=== PATIENT | female | born 1960 | race Caucasian/White ===

== ENCOUNTER 2016-09-03 14:18 | Day surgery (SDC) | payer OTHER ==
[~2016-09-03] VITALS: Ht 170.2 cm; Wt 122.1 kg
[2016-09-03] VITALS (7 sets, daily range): BP systolic 137–159; BP diastolic 66–92; PULSE 66–95; TEMP 97.3–97.7
[2016-09-03] MEDS ORDERED: HYZAAR 25 MG-101 TAB PO (14:46)
[2016-09-03] MEDS ORDERED: TIROSINT125 MC1 PO (14:47)
[2016-09-03] MEDS ORDERED: PERCOCET 325 MG1 TA3 PO (14:47)
[2016-09-03] MEDS ORDERED: NATURAL E400 IU PO (14:48)
[2016-09-03] MEDS ORDERED: MULTIPLE VITAMI1 CAP PO (14:49)
== END 2016-09-03 21:00 ==
LOC: SDCO 14:18 → SURG 18:57 → SDCO 21:00
DX: C67.6 Malignant neoplasm of ureteric orifice (principal); I10 Essential (primary) hypertension; E07.9 Disorder of thyroid, unspecified; E05.00 Thyrotoxicosis with diffuse goiter without thyrotoxic crisis or storm; K75.81 Nonalcoholic steatohepatitis (NASH); M19.90 Unspecified osteoarthritis, unspecified site; L40.9 Psoriasis, unspecified; Z80.3 Family history of malignant neoplasm of breast; Z80.42 Family history of malignant neoplasm of prostate; Z77.22 Contact with and (suspected) exposure to environmental tobacco smoke (acute) (chronic)
CPT/HCPCS: OP; C1769; J0690; J1100; J2405; J2704; J2765; J3010; J7120; Q9967

== ENCOUNTER → 2016-09-18 | Outpatient (CLI) | payer OTHER ==
[~2016-09-18] MED LIST: HYZAAR 25 MG-101 TAB PO; MULTIPLE VITAMI1 CAP PO; NATURAL E400 IU PO; PERCOCET 325 MG1 TA3 PO; TIROSINT125 MC1 PO
== END ==
LOC: COL.RAD 07:30
DX: R10.11 Right upper quadrant pain (principal)

== ENCOUNTER → 2017-11-29 | Outpatient (CLI) | payer OTHER ==
[2017-11-29 16:34] LABS: SYNOVIAL FL. MONONUCLEAR 7.9 % (0-75); SYNOVIAL FLUID RBC 123000 /mm3 (0-0); SYNOVIAL FLUID WBC 178697 /mm3 (200-600)
[2017-11-29 18:04] LABS: SYNOVIAL FLUID APPEARANCE CLOUDY; SYNOVIAL FLUID COLOR BROWN
== END ==
LOC: ZCOL.LAB 16:29
PROVIDERS: Physician Assistant
DX: M25.561 Pain in right knee (principal)

== ENCOUNTER → 2021-05-04 | Outpatient (CLI) | payer BC | LOC: COL.LAB 15:52 | DX: J30.1 Allergic rhinitis due to pollen (principal); Z91.018 Allergy to other foods ==

== ENCOUNTER → 2021-05-04 | Outpatient (CLI) | payer BC ==
[2021-05-04 16:33] LABS: CREATININE, serum 0.81 mg/dL (0.57-1.11)
== END ==
LOC: COL.LAB 15:48
PROVIDERS: Urology
DX: C67.2 Malignant neoplasm of lateral wall of bladder (principal)